=== PATIENT | female | born 1990 | race Caucasian/White ===

== ENCOUNTER 2018-02-27 12:12 | Emergency (ER) | payer OTHER ==
[~2018-02-27] VITALS: Ht 165.1 cm; Wt 65.8 kg
[2018-02-27 12:20] VITALS: BP 143/85
[2018-02-27] MEDS: ONDANSETRON 4 MG ODT PO ONE (13:37)
[2018-02-27] MEDS: ACETAMINOPHEN 325 MG TAB PO ONE (13:37)
[2018-02-27 15:04] VITALS: BP 120/90
== END 2018-02-27 13:55 | disposition home or self-care (01) ==
LOC: MED 12:12
DX: S06.0X9A Concussion with loss of consciousness of unspecified duration, initial encounter (principal); F32.9 Major depressive disorder, single episode, unspecified; Z88.1 Allergy status to other antibiotic agents; W22.8XXA Striking against or struck by other objects, initial encounter; Y93.89 Activity, other specified; Y92.89 Other specified places as the place of occurrence of the external cause; Y99.8 Other external cause status
CPT/HCPCS: 70450; 99284; Q0162